=== PATIENT | female | born 1985 | race Caucasian/White ===

== ENCOUNTER 2018-11-30 11:39 | Emergency (ER) | payer MEDICARE, OTHER ==
[~2018-11-30] VITALS: Ht 157.5 cm; Wt 108.9 kg
--- OUTSIDE RECORDS SUMMARY | 2018-11-30 11:42 | XMS REPORT | Continuity of Care Document ---
Author Author Captual Address Unknown Phone Unavailable Care Team Providers Care Chargeback Specialist Name Role Phone [facility] Unavailable Unavailable Problems Problem Status Onset Date Classification Date Reported Comments Source Exposure to sexually transmissible disorder 01/20/2016 Diagnosis 01/20/2016 [facility] Acute urinary tract infection Problem 01/20/2016 [facility] Medications Medication Details Route Status Patient Instructions Ordering Provider Order Date Source Azithromycin 500 MG Oral Tablet azithromycin 500 mg tablet Take 2 tablets every day by oral route with meals for 1 day. Active [facility] Ceftriaxone 500 MG Injection ceftriaxone 500 mg solution for injection Active [facility] NITROFURANTOIN, MACROCRYSTALS 25 MG / Nitrofurantoin, Monohydrate 75 MG Oral Capsule [Macrobid] Macrobid 100 mg capsule Take 1 capsule every 12 hours by oral route with meals for 7 days. Active [facility] Allergies, Adverse Reactions, Alerts No Known Medication Allergies Immunizations Immunization Date Given Site Status Last Updated Comments Source influenza, injectable, quadrivalent 09/15/2015 completed [facility] Results Order Name Results Value Reference Range Date Interpretation Comments Source Urinalysis macro (dipstick) panel - Urine COLOR : Yellow 01/20/2016 [facility] Urinalysis macro (dipstick) panel - Urine CLARITY : Cloudy 01/20/2016 [facility] Urinalysis macro (dipstick) panel - Urine LEUKOCYTES : Large 01/20/2016 [facility] Urinalysis macro (dipstick) panel - Urine NITRITES : Negative 01/20/2016 [facility] Urinalysis macro (dipstick) panel - Urine UROBILINOGEN : Normal 01/20/2016 [facility] Urinalysis macro (dipstick) panel - Urine PROTEIN : Negative 01/20/2016 [facility] Urinalysis macro (dipstick) panel - Urine pH : 8.0 01/20/2016 [facility] Urinalysis macro (dipstick) panel - Urine BLOOD : Hemolyzed Trace 01/20/2016 [facility] Urinalysis macro (dipstick) panel - Urine SPECIFIC GRAVITY : 1.000 01/20/2016 [facility] Urinalysis macro (dipstick) panel - Urine KETONES : Negative 01/20/2016 [facility] Urinalysis macro (dipstick) panel - Urine BILIRUBIN : Negative 01/20/2016 [facility] Urinalysis macro (dipstick) panel - Urine GLUCOSE Negative 01/20/2016 [facility] Pathology Reports No Data Provided for This Section Diagnostic Reports No Data Provided for This Section Consultation Notes No Data Provided for This Section Discharge Summaries No Data Provided for This Section History and Physicals No Data Provided for This Section Vital Signs Vital Sign Value Date Comments Source Diastolic (mm Hg) 85 01/20/2016 [facility] Height 62 01/20/2016 [facility] Systolic (mm Hg) 130 01/20/2016 [facility] Weight 168 01/20/2016 [facility] Encounters Location Location Details Encounter Type Encounter Number Reason For Visit Attending Provider ADM Date DC Date Status Source PA - [facility] - [address] Orlando Hubbard, [employer]: [id number] , [place] [address], Ph. [id number] Orlando Hubbard 01/20/2016 [facility] Procedures No Data Provided for This Section Assessment and Plan No Data Provided for This Section Plan of Care No Data Provided for This Section Social History Social History Date Source Smoking Status Never Smoker 01/20/2016 [facility] Family History No Data Provided for This Section Advance Directives No Data Provided for This Section Functional Status No Data Provided for This Section
--- OUTSIDE RECORDS SUMMARY | 2018-11-30 11:42 | XMS REPORT | Encounter Summary ---
Author Organization Unknown Address [address] [place] [address] Phone [phone] Reason for Visit Medical Complaint; exposure to G/C, lower abd pain, flank pain, burning w/ urniation x 7 days Instructions 1. Acute urinary tract infection culture, urine urinalysis, dipstick Macrobid 100 mg capsule urinary tract infection in women: care instructions 2. Exposure to sexually transmissible disorder azithromycin 500 mg tablet chlamydia: care instructions CT + NG DNA, PCR, unspecified specimen ceftriaxone 500 mg solution for injection Discussion Note UTI: How can you care for yourself at home? Take your antibiotics as directed. Do not stop taking them just because you feel better. You need to take the full course of antibiotics. Drink extra water and other fluids for the next day or two. This may help wash out the bacteria that are causing the infection. (If you have kidney, heart, or liver disease and have to limit fluids, talk with your doctor before you increase your fluid intake.) Avoid drinks that are carbonated or have caffeine. They can irritate the bladder. Urinate often. Try to empty your bladder each time. To relieve pain, take a hot bath or lay a heating pad set on low over your lower belly or genital area. Never go to sleep with a heating pad in place. To prevent UTIs Drink plenty of water each day. This helps you urinate often, which clears bacteria from your system. (If you have kidney, heart, or liver disease and have to limit fluids, talk with your doctor before you increase your fluid intake.) Consider adding cranberry juice to your diet. Urinate when you need to. Urinate right after you have sex. Change sanitary pads often. Avoid douches, bubble baths, feminine hygiene sprays, and other feminine hygiene products that have deodorants. After going to the bathroom, wipe from front to back. When should you call for help? Call your doctor now or seek immediate medical care if: Symptoms such as fever, chills, nausea, or vomiting get worse or appear for the first time. You have new pain in your back just below your rib cage. This is called flank pain. There is new blood or pus in your urine. You have any problems with your antibiotic medicine. Watch closely for changes in your health, and be sure to contact your doctor if: You are not getting better after taking an antibiotic for 2 days. Your symptoms go away but then come back. STD: How can you care for yourself at home? Chlamydia often is treated with a single dose of antibiotics in the doctor's office. If your doctor prescribed antibiotics to take at home, take them as directed. Do not stop taking them just because you feel better. You need to take the full course of antibiotics. Do not have sex with anyone while you are being treated. If your treatment is a single dose of antibiotics, wait at least 7 days after you take the dose before you have sex. Even if you use a condom, you and your partner may pass the infection back and forth. Make sure to tell your sex partner or partners that you have chlamydia. They should get treated, even if they do not have symptoms. Your doctor may have done tests for other STIs. If so, call back in 3 or 4 days for those results. Your doctor may advise you to be tested again for chlamydia in 3 or 4 months. How can you prevent chlamydia and other STIs in the future? Use latex condoms every time you have sex. Use them from the beginning to the end of sexual contact. Talk to your partner before you have sex. Find out if he or she has or is at risk for chlamydia or any other STI. Keep in mind that a person may be able to spread an STI even if he or she does not have symptoms. Do not have sex while you are being treated for chlamydia or any other STI. Do not have sex with anyone who has symptoms of an STI, such as sores on the genitals or mouth. Having one sex partner (who does not have STIs and does not have sex with anyone else) is a good way to avoid STIs. When should you call for help? Call 911 anytime you think you may need emergency care. For example, call if: You have sudden, severe pain in your belly or pelvis. Call your doctor now or seek immediate medical care if: You have new belly or pelvic pain. You have a fever. You have new or increased burning or pain with urination, or you cannot urinate. You have pain, swelling, or tenderness in the scrotum. Watch closely for changes in your health, and be sure to contact your doctor if: You have unusual vaginal bleeding. You have a discharge from the vagina or penis. You think you may have been exposed to another STI. Your symptoms get worse or have not improved within 1 week after starting treatment. You have any new symptoms, such as sores, bumps, rashes, blisters, or warts in the genital or anal area. Plan of Care Reminders Provider Appointments None recorded. Lab Culture, Urine 01/20/2016 [facility] Urinalysis, Dipstick 01/20/[address] [facility] [address] + NG DNA, PCR, Unspecified Specimen 01/20/2016 [facility] Referral None recorded. Procedures None recorded. Surgeries None recorded. Imaging None recorded. Medications Name Start Date azithromycin 500 mg tablet Take 2 tablets every day by oral route with meals for 1 day. ceftriaxone 500 mg solution for injection Macrobid 100 mg capsule Take 1 capsule every 12 hours by oral route with meals for 7 days. Medications Administered Name Date ceftriaxone 500 mg solution for injection Take by injection route. [id number] Vitals Height Weight BMI Blood Pressure 5 ft 2 in 168 lbs 30.7 130/85 Lab Results Date Name Result Description Value Range Status Urinalysis, Dipstick Color : Yellow Clarity : Cloudy Leukocytes : Large Nitrites : Negative Urobilinogen : Normal Protein : Negative Ph : 8.0 Blood : Hemolyzed Trace Specific Morrison : 1.000 Ketones : Negative Bilirubin : Negative Glucose Negative Allergies Name Reaction Severity Onset NKDA Problems Name Status Onset Date Source Acute Urinary Tract Infection Active Encounter Procedures None recorded. Vaccine List Vaccine Type influenza, injectable, quadrivalent 09/14/2015 Social History Smoking Status Never Smoker Past Encounters 01/20/2016 Acute Urinary Tract Infection; Exposure to Sexually Transmissible Disorder PATTI [place]: [id number], [place] [address], Ph. History of Present Illness [id number] Reported By: Patient HPI: Location: abdomen, urethra. Quality: pressure, burning. Severity: worsening, moderate. Duration: started 7 days, constant. Onset/Timing: worse. Context: no prior history of STDs, sexually active, possible/known exposure to STD, unprotected intercourse, denies possible , LMP, wipes anterior to posterior, voids after intercourse. Modifying factors nothing makes it worse. Associated Symptoms: no fever/chills, no flank pain, no jaundice, no blood in the urine, no pain during urination, no blisters on genitals, no rash on genitals, burning sensation during urination, clear vaginal discharge, urgency, urinary frequency Review of Systems Basic Reported By: Patient Constitutional: Constitutional: no fever Eyes: Eyes: no eye complaints Chbs-Iqal-Dyhjv-Throat: Ears: no ear complaints. Nose: no nose/sinus problems. Mouth/Throat: no sore throat, no bleeding gums, no mouth complaints, no teeth problems Cardiovascular: Cardiovascular: no chest pain, no shortness of breath, no known heart murmur Respiratory: Respiratory: no cough, no wheezing, no shortness of breath Gastrointestinal: Gastrointestinal: no abdominal pain, no vomiting / diarrhea Genitourinary: Genitourinary: no discharge, dysuria, urinary urgency Musculoskeletal: Musculoskeletal: no muscle aches, no muscle weakness, no arthralgias/joint pain, no back pain Skin: Skin: no abnormal / changing mole, no jaundice, no rashes Neurologic: Neurologic: no loss of consciousness, no weakness, no numbness, no seizures, no dizziness, no headaches Physical Exam Adult Female Complete Constitutional: General Appearance: healthy-appearing, well-nourished, well-developed. Level of Distress: NAD. Ambulation: ambulating normally Psychiatric: Mental Status: active and alert. Orientation: to time, to place, to person Eyes: Lids and Conjunctivae: non-injected, no discharge Lungs: Respiratory effort: no dyspnea. Auscultation: breath sounds normal Cardiovascular: Heart Auscultation: RRR, no murmurs. Neck vessels: no carotid bruits. Pulses including femoral / pedal: normal throughout Abdomen: Bowel Sounds: normal. Inspection and Palpation: soft, non-distended, no guarding, no rebound tenderness, no masses, suprapubic tenderness, CVA tenderness. Liver: non-tender, no hepatomegaly. Spleen: non-tender, no splenomegaly. Hernia: none palpable Musculoskeletal:: Motor Strength and Tone: normal motor strength, normal tone. Joints, Bones, and Muscles: normal movement of all extremities, no bony abnormalities, no contractures, no tenderness. Extremities: no cyanosis, no edema, no varicosities Neurologic: Gait and Station: normal gait, normal station. Cranial Nerves: grossly intact. Sensation: grossly intact Skin: Inspection and palpation: no rash, no lesions, no ulcer, no abnormal nevi, no induration, no nodules, no jaundice. Nails: normal
--- NOTE | 2018-11-30 12:09 | NUR ---
NOTIFIED HACK DRIVER TO [facility] FOR OB ULTRASOUND.
[2018-11-30] MEDS: SODIUM CHLORIDE 0.9% 1000ML 1,000 ML IV STA (12:11)
[2018-11-30 12:18] LABS: BASOPHILS % 0.3 % (0.0-1.0); EOSINOPHILS # (AUTO) 0.1 (0.0-0.4); EOSINOPHILS % 0.6 % (0.0-6.0); HEMATOCRIT 36.9 % (34.2-44.1); HEMOGLOBIN 12.1 g/dL (12.0-16.0); LYMPHOCYTES # (AUTO) 2.6 (1.0-3.2); LYMPHOCYTES % 21.2 % (18.0-39.1); MEAN CORPUSCULAR HEMOGLOBIN 27.1 pg (28-32); MEAN CORPUSCULAR HGB CONC 32.8 g/dL (31-35); MEAN CORPUSCULAR VOLUME 82.7 fL (81-99); MONOCYTES # (AUTO) 0.7 (0.2-0.8); MONOCYTES % 5.5 % (4.4-11.3); NEUTROPHILS # (AUTO) 8.6 (2.1-6.9); NEUTROPHILS % 71.2 % (38.7-80.0); PLATELET COUNT 344 x10e3/uL (140-360); RED BLOOD COUNT 4.46 x10e6/uL (3.6-5.1)
[2018-11-30 12:36] LABS: ALANINE AMINOTRANSFERASE 21 IU/L (0-55); ALBUMIN/GLOBULIN RATIO 0.9 (0.8-2.0); ALKALINE PHOSPHATASE 51 IU/L (40-150); ANION GAP 12.7 mmol/L (8-16); BLOOD UREA NITROGEN < 5 mg/dL (7-26); CALCIUM 8.6 mg/dL (8.4-10.2); CARBON DIOXIDE 23 mmol/L (22-29); CHLORIDE 106 mmol/L (98-107); CREATININE, SERUM 0.56 mg/dL (0.57-1.11); EST GLOMERULAR FILTRATION RATE > 60 ML/MIN (60-); GLUCOSE 88 mg/dL (74-118); POTASSIUM 3.7 mmol/L (3.5-5.1); SODIUM 138 mmol/L (136-145)
[2018-11-30 12:38] LABS: BILIRUBIN,URINE NEGATIVE (NEGATIVE); BUN/CREATININE RATIO 9 (6-25); CLARITY,URINE SL CLOUDY (CLEAR); COLOR,URINE YELLOW (YELLOW); KETONES,URINE NEGATIVE (NEGATIVE); LEUKOCYTE ESTERASE ,URINE NEGATIVE (NEGATIVE); NITRITE,URINE NEGATIVE (NEGATIVE); PROTEIN,URINE DIPSTICK NEGATIVE (NEGATIVE); URINE UROBILINOGEN 0.2 mg/dL (0.2 - 1)
[2018-11-30 12:41] LABS: BACTERIA,URINE FEW /HPF; EPITHELIAL CELLS,URINE MODERATE /LPF; RBC,URINE 0-5 /HPF (0-5); WBC,URINE (MAN) 0-5 /HPF (0-5)
--- NOTE | 2018-11-30 14:31 | Diagnostic Imaging Report ---
EXAM: US OB COMPLETE SINGLE GEST DATE: 11/30/2018 12:00 AM INDICATION: ^trauma ^[id number] ^[id number] ^Y COMPARISON: None TECHNIQUE: Multiple transabdominal images of the uterus and fetus were obtained using botello-scale, color Doppler and M-mode. FINDINGS: LMP 07/31/2018 A0 Type of Gestation: [place] GA by LMP: 17w 3d GA by current U/S: 18w 3d LESIA 05/07/2019 Measurements: BPD 4.1 cm 18w 4d HC 15.7 cm 18w 4d AC 13 cm 18w 4d FL 2.7 cm 18w 1d Estimated Weight: 236.9 g, (0 lbs) 8 oz 93.8% Visualized Anatomy: Four chamber cardiac view Regular cardiac rhythm Stomach Kidneys Bladder movement No evidence of placental previa. There is no funneling of the internal os. size is appropriate for gestational age. Position: Variable Placental Location: Lateral Cervical Length: 3.0 cm Amniotic Fluid Index: 24.5 cm Heart Rate: 159 bpm Incidental 15 cm uterine fibroid. IMPRESSION: Single living intrauterine without abnormality identified. Signed by: Dr. Lena Flores M.D. on 11/30/2018 2:28 PM
[2018-11-30 14:52] VITALS: BP 124/77
== END 2018-11-30 15:09 | disposition home or self-care (01) ==
LOC: ER 11:39
DX: O26.892 Other specified pregnancy related conditions, second trimester (principal); S30.1XXA Contusion of abdominal wall, initial encounter; V43.62XA Car passenger injured in collision with other type car in traffic accident, initial encounter; Y92.488 Other paved roadways as the place of occurrence of the external cause
CPT/HCPCS: 36415; 76805; 80053; 81001; 85025; 86850; 86900; 87086; 99284; J7030